=== PATIENT | female | born 1980 | race Caucasian/White ===

== ENCOUNTER 2021-02-05 14:20 | Outpatient (CLI) | payer BC, MEDICAID, SELFPAY ==
--- NOTE | 2021-02-05 14:34 | MM_ITS ---
WS: [id number] BILATERAL DIGITAL DIAGNOSTIC MAMMOGRAM MAMMOGRAPHY WITH CAD CLINICAL INFORMATION: LEFT BREASTE LUMP COMPARISON: None. TECHNIQUE: Bilateral CC, MLO, and ML views. FINDINGS: The breasts are composed of heterogeneous fibroglandular density, which can limit the detection of sm all underlying mass lesions. No abnormalities in the area of palpable concern. Incidental left axilla ry tail lymph node. No suspicious focal mass, asymmetry, calcifications, or architectural distortion. Ultrasound is pendi ng ULTRASOUND BREAST LEFT TECHNIQUE: Ultrasound left breast focused area of concern. CLINICAL INFORMATION: LEFT BREASTE LUMP COMPARISON: None. FINDINGS: Ultrasound left breast in the area of concern 9:00 5 cm from the nipple. Dense shadowing underlying r ib. No suspicious cystic or solid lesions. No lesions to target for biopsy. Small amount of Edema in the adjacent intercostal muscle likely due to muscle strain. No suspicious lesions. MM/[id number] IMPRESSION: BI-RADS: 2-Benign FOLLOW UP: 1 Year Follow-up Recommend annual screening mammography age 40.
== END 2021-02-05 14:21 | disposition home or self-care (01) ==
LOC: RADSHAW 14:32
PROVIDERS: PCP Family Medicine; Visit Provider Family Medicine
DX: N63.25 Unspecified lump in the left breast, overlapping quadrants (principal)
CPT/HCPCS: 76642; 77066